=== PATIENT | female | born 1945 | race Caucasian/White ===

== ENCOUNTER 2017-04-20 10:09 | Inpatient (IN) | payer MEDICARE ==
--- NOTE | ~2017-04-20 | OP ---
Record Of Operation [facility] [address] [place]. [address] NAME: SERA HUTCHINS : 45 STATUS : ADM IN PAT#: [id number] AGE: 71 ADM/REG DATE : 04/21/17 MR#: [id number] REPORT SERV DATE: 04/22/17 DICTATED BY: LON SALINAS DATE: 04/22/17 REPORT STATUS : Draft TRANSCRIBED BY: MODL DATE: 04/22/17 DATE OF PROCEDURE: 04/22/2017 PREOPERATIVE DIAGNOSIS: Right trimalleolar ankle fracture. POSTOPERATIVE DIAGNOSIS: Right trimalleolar ankle fracture. PROCEDURE: Open reduction and internal fixation, right trimalleolar ankle fracture. ANESTHESIA: General. COMPLICATIONS: None. INDICATION FOR OPERATION: Sera Hutchins is a pleasant 71-year-old female who suffered the above-mentioned injury. Risks and benefits of surgical intervention were discussed at length with her and the patient. All of her questions were answered. She wished to proceed. DESCRIPTION OF PROCEDURE: Sera was brought back to operating room, where general anesthesia was initiated. Right lower extremity was prepped and draped in the usual sterile fashion. Esmarch exsanguination was utilized, well-padded thigh tourniquet was inflated. A longitudinal incision was made over the lateral aspect of the distal fibula and blunt dissection was used to protect local neurovascular structures. Limited subperiosteal dissection was used to expose the fracture. This was a comminuted fracture with a long oblique piece complicated by two posterior butterfly fragments. Distal traction was applied and anatomic reduction of the fracture was obtained with the use of fracture reduction clamps. We then used an Arthrex 10-hole one-third tubular plate. A combination of locking and nonlocking screws were used to secure the plate to the bone. Next, I approached the medial malleolus. An incision was made. Blunt dissection was used to protect local neurovascular structures. Limited subperiosteal dissection was used to expose the fracture. Two Arthrex 4.0 mm cannulated screws were placed across the fracture. Each screw secured the distal fragment to the more proximal tibial shaft. At this time, a FluoroScan imaging was obtained. AP mortise and lateral views of the ankle were performed. Imaging showed acceptable position of the fractures as well as the hardware. The posterior malleolar piece was relatively small and in acceptable position and fixation was not indicated. Images were printed and saved. Copious irrigation was repeated. Deep tissue was closed over the hardware with interrupted 2-0 Vicryl suture. Subcutaneous tissues and skin were closed in typical fashion. Bulky sterile dressings were applied and a well-padded posterior splint was placed. The patient did well throughout the case. She awoke in the operating room and was transferred to the recovery room in satisfactory condition. MMB/MODL Record Of Operation [address] [address] NAME: SERA HUTCHINS : 45 STATUS : ADM IN PAT#: [id number] AGE: 71 ADM/REG DATE : 04/21/17 MR#: [id number] REPORT SERV DATE: 04/22/17 DICTATED BY: LON SALINAS DATE: 04/22/17 REPORT STATUS : Draft TRANSCRIBED BY: BLUE DATE: 04/22/17 Lon Salinas MD / [id number] CC: David Ortez M.D.
--- NOTE | ~2017-04-20 | CN ---
Consultation Report [facility] [address] [place]. [address] NAME: SERA HUTCHINS : 45 STATUS : ADM IN [facility]#: [id number] AGE: 71 ADM/REG DATE : 04/21/17 MR#: [id number] REPORT SERV DATE: 04/22/17 DICTATED BY: LON SALINAS DATE: 04/21/17 REPORT STATUS : Draft TRANSCRIBED BY: MODL DATE: 04/21/17 ORTHOPEDIC FOOT AND ANKLE CONSULTATION DATE OF CONSULTATION: 04/21/2017 REASON FOR CONSULTATION: Right bimalleolar ankle fracture. HISTORY OF PRESENT ILLNESS: Sera Hutchins is a pleasant 71-year-old female, who was seen at the bedside with her . Her is her main caregiver and they admit to an increasing right ankle pain. Unfortunately, they are not exactly sure at which point the ankle was actually broken. She had a number of falls off from standing height over the past few weeks. Three days ago, she did have a fall on the right side which may have been the precipitating event. This was a very low energy type of fall where she essentially "sat down on" her right foot. Since that time, she has had difficulty walking due to right ankle pain. She denies associated injuries to include head injury or loss of consciousness. She denies injury to the bilateral upper extremities or left lower extremity. PAST MEDICAL HISTORY: Significant for multiple sclerosis for 30 years, it has been progressive with significant decline in her functional status over the past. History of seizure disorder. History of glaucoma and osteoarthritis. SURGICAL HISTORY: Significant for appendectomy in 2012. ALLERGIES: NO KNOWN DRUG ALLERGIES. SOCIAL HISTORY: The patient received a high level of care from her family. She is . She is disabled. She lives in [place], [place]. Her baseline is that she ambulates with a walker with assistance from her family. She denies tobacco use. She has never smoked. She denies alcohol use as well as no illicit or recreational drug use. FAMILY HISTORY: Significant for peripheral vascular disease in her father. Mother had a brain aneurysm at age 82. No other significant family history. MEDICATIONS: At home include Alphagan eyedrops, timolol eye drops, vitamin D3, Keppra, multivitamins, Ruby-[place] Plus Cold and Cough p.r.n. over the counter. REVIEW OF SYSTEMS: She was in her usual state of health at the time of the evaluation. She denies fevers, chills, nausea, vomiting, abdominal pain, shortness of breath, or chest pain. PHYSICAL EXAMINATION: GENERAL: Reveals that her temperature is 98.2, pulse is 86, respiratory rate 22. She is 92% on room air. Her BMI is 29.4. GENERAL: She is alert and oriented x3. Consultation Report [address] [place]. [address] NAME: SERA HUTCHINS : 45 STATUS : ADM IN PAT#: [id number] AGE: 71 ADM/REG DATE : 04/21/17 MR#: [id number] REPORT SERV DATE: 04/22/17 DICTATED BY: LON SALINAS DATE: 04/21/17 REPORT STATUS : Draft TRANSCRIBED BY: BLUE DATE: 04/21/17 HEENT: Head is atraumatic. Eyes, pupils are equal to light and reactive. EXTREMITIES: No tenderness with gentle range of motion of her cervical spine. No tenderness with gentle range of motion of her bilateral upper extremities. Lower extremities, no tenderness to gentle range of motion of her left hip, knee, or ankle. There is no evidence of traumatic skin lesions. On the right lower extremity, no evidence of tenderness with gentle range of motion of her right hip and right knee. The right ankle shows evidence of diffuse edema. There is mild ecchymosis on the medial and lateral aspects. She is exquisitely tender to palpation over the medial and lateral malleoli. No evidence of midfoot or forefoot trauma. No open skin lesions. X-RAYS: Three views of the right ankle reveal a right bimalleolar ankle fracture. The medial malleolus is minimally displaced and the lateral malleolus is moderately displaced. There is some disuse osteopenia present. IMPRESSION: 1. Right bimalleolar ankle fracture. 2. Multiple sclerosis. PLAN: Lengthy discussion with the patient and her regarding her diagnosis and treatment options. Due to the displacement of this ankle fracture and potential for further displacement, I recommended open reduction and internal fixation. All of their questions were answered, and we will proceed with surgical stabilization of this ankle fracture during her hospitalization. I spoke with Dr. Ortez on the phone who agreed with our plan. We will proceed with ORIF tomorrow (04/22/2017). She will be n.p.kenton hanks. Please feel free to call me on my cell phone at with additional questions or concerns. 55 minutes was spent on this consultation including review of the medical records, x-ray review, development of a treatment plan, as well as [id number] time with the patient and her . RANJIT/BLUE Lon Salinas MD / [id number] CC: David Ortez M.D.
--- NOTE | ~2017-04-20 | HP ---
History And Physical [facility] [id number] [place]. [address] NAME: JOSE MORA : 45 STATUS : ADM Caro PAT#: [id number] AGE: 71 ADM/REG DATE : 04/20/17 MR#: [id number] REPORT SERV DATE: 04/20/17 DICTATED BY: EFREN PACHECO DATE: 04/20/17 REPORT STATUS : Draft TRANSCRIBED BY: MODL DATE: 04/20/17 DATE OF ADMISSION: 04/20/2017 CHIEF COMPLAINT: Right lower extremity pain, inability to walk. HISTORY OF PRESENT ILLNESS: Obtained from the patient and the patient's present at bedside, who is the main caregiver, and the emergency room documents. Also, prior medical records available to us were thoroughly reviewed. According to the information available, the patient is a pleasant, 71-year-old white woman, mainly with a history of multiple sclerosis/mass progressive for over 30 years in the almost total care of her at home. At baseline, the patient is able to get up with significant assistance, pivot around, and used a walker to get some steps and preserved some mobility and ability to get to the doctor's visit. Apparently three days ago, the patient had a fall on the right side, which was actually very low type of fall. The patient almost slid and had since pain in the right hip, right lower back, and unable to walk since yesterday. The patient's family reports increased myalgias, arthralgias, and lower back pain. No dysuria or urinary symptoms. No fever or chills. No cough. No increased abdominal pain or nausea or vomiting, diarrhea, change in bowel movement, habits or change in p.o. intake. No recent change in her medications. The patient apparently has been seen by her neurologist, Dr. Taylor, for a regular scheduled visit just about a month ago in 03/2017. In the emergency room, the patient was investigated with x-rays as well as CT scan of the abdomen and pelvis, though they were mostly unrevealing with also laboratory data showing dehydration and acute kidney injury compared with laboratory testing from about a month ago. Furthermore physical examination by the Hospitalist Service called to evaluate and admit the patient revealed a possible right ankle/right calf cellulitis with increasing swelling and tenderness as well as significant swelling compared with the left lower extremity is concerning for possible DVT. Note that further investigation is still pending at the moment of admission and dictation of this H and P. PAST MEDICAL HISTORY: Significant for multiple sclerosis apparently for 30 years progressive with significant decline in her functional status over the last year. The patient in almost total care of her family at home, history of possible seizure disorder. The patient is taking Keppra for many years as well. History of glaucoma. History of osteoarthritis. PAST SURGICAL HISTORY: Significant for appendectomy in 2012 when patient was admitted here at [facility] with the sepsis secondary to the appendicitis process. ALLERGIES: NO KNOWN DRUG ALLERGIES. SOCIAL HISTORY: , disabled, lives in [place], [place]. The patient ambulates at baseline with a walker after she has been "setup" by her family. Denies tobacco abuse. Never smoked. Denies alcohol abuse. Denies illicit or recreational drug abuse. FAMILY HISTORY: Significant for peripheral vascular disease in her father. Her mother had a brain aneurysm diagnosed at age 82. There is no other significant family history. History And Physical [address] [address] NAME: JOSE MORA : 45 STATUS : ADM Caro PAT#: [id number] AGE: 71 ADM/REG DATE : 04/20/17 MR#: [id number] REPORT SERV DATE: 04/20/17 DICTATED BY: EFREN PACHECO DATE: 04/20/17 REPORT STATUS : Draft TRANSCRIBED BY: BLUE DATE: 04/20/17 MEDICATIONS: Medications at home according to the list provided, the patient is supposed to take Alphagan ophthalmic drops one drop both eyes b.i.d., timolol ophthalmic drops one drop both eyes every morning, vitamin D3 1000 units p.o. daily, Keppra 500 mg p.o. b.i.d., multiple vitamin and minerals over the counter 1000 p.o. daily, Ruby-[place] Plus cold and cough p.r.n. [id number]-[id number] two capsules b.i.d. REVIEW OF SYSTEMS: Per H and P, otherwise negative in all review of systems. Please note, the comprehensive review of system was obtained and pertinent positives are included in the H and P. PHYSICAL EXAMINATION: GENERAL: Pleasant, cooperative, obviously in mild distress when I examined and attempts were made regarding mobilization of the right lower extremity due to the pain. VITAL SIGNS: Upon arrival in the emergency room, blood pressure 102/57, pulse 75, respiratory rate 16, temperature 97.8, and oxygen saturation 94% in room air. HEENT: Bilateral cataracts. Extraocular movements intact. Throat, mild erythema. No exudate. No signs of tenderness. NECK: Supple. No JVD. No bruits. No thyromegaly. No lymph nodes. LUNGS: Bilateral air entry with few dry crackles at bases. No wheezing. Good airway movement. HEART: Positive S1, S2. Regular rate and rhythm. Positive soft mitral regurgitation murmur at the apex. No rub. No gallop. PMI not displaced by palpation. ABDOMEN: Positive bowel sounds. Soft, nontender. No guarding. No hepatosplenomegaly noted. Skin fold mild mucocutaneous candidiasis. EXTREMITIES: Decreased range of motion. No osteoarthritic changes. No clubbing. No cyanosis. Right calf was swollen, tender with increasing redness and increasing warmth, especially around the right ankle area, significantly different from the left lower extremity. Tenderness upon palpation of the distal thigh, but no significant tenderness around the right knee joint area. No synovitis noticed. Right hip with tenderness upon palpation of the thigh muscles with increased tenderness with range of motion and direct palpation (passively range of motion). Distal pulses +1 symmetric bilateral. NEUROLOGIC: Alert and oriented x3 at baseline. Significant with her well known multiple sclerosis status. No meningeal signs noticed. Pleasant, cooperative, appropriate mood and affect. Cranial nerves 2 through 12 grossly intact. BACK: Decreased range of motion. No focal localized tenderness. No CVA tenderness. SKIN: No bruises, no rashes, no lacerations (besides the above-mentioned changes at the right ankle/right calf area). SIGNIFICANT LABORATORY DATA: Chest x-ray (personal reading) showed no acute infiltrate. EKG (personal reading) shows normal sinus rhythm at 79 beats per minute. Occasional PVCs. No acute ST elevation. Urinalysis not available, not done. CT scan of the abdomen and pelvis shows no acute intraabdominal or intrapelvic pathology without contrast, chronic moderate L1 compression fracture, diverticulosis without diverticulitis. Hip and right femur x-rays with no signs of fractures or displacement, dislocations. Osteoarthritis of the knee. CK is 218, which is only slightly elevated. White cell count 10.8, hemoglobin 13.2, platelet count 219, INR 1.2. Sodium 135, potassium 4, chloride 106, bicarb 28, BUN 24, creatinine 1.48, glucose 97, calcium 9.1, magnesium 2.6, troponin I less than 0.02. History And Physical [address] [address] NAME: JOSE MORA : 45 STATUS : ADM Caro PAT#: [id number] AGE: 71 ADM/REG DATE : 04/20/17 MR#: [id number] REPORT SERV DATE: 04/20/17 DICTATED BY: EFREN PACHECO ION DATE: 04/20/17 REPORT STATUS : Draft TRANSCRIBED BY: MODL DATE: 04/20/17 ASSESSMENT AND PLAN AND PROBLEM LIST: The patient is a pleasant, 71-year-old white woman, admitted with inability to walk. Right lower extremity pain, possible secondary to the right calf cellulitis in addition to her baseline multiple sclerosis and muscle trauma. IMPRESSION: 1. Neurologic problem. a. Multiple sclerosis, longstanding. b. Seizure disorder, presently stable on medication. We are going to continue Keppra for now and monitor her neurologic checks. Notify or go to consult Dr. Taylor at the patient's family request the patient's presence in the hospital. 2. Right calf cellulitis, clinically significant. We are going to start IV antibiotic Ancef with rapid change to Duricef. Elevate right lower extremity. Check for possible deep venous thrombosis due to swelling and tenderness upon examination. 3. Musculoskeletal problem. a. Inability to walk and falls. b. Right hip and right leg pain intractable. We are going to provide adequate pain control and we are going to obtain physical therapy and OT evaluation, consider rehabilitation acute/subacute setting. 4. Acute kidney injury and mild dehydration. Provide adequate IV hydration. Monitor BUN and creatinine. Monitor urinary output. Check the PVR for possible retention. 5. Glaucoma by history. Continue ophthalmic drops. PROGNOSIS: Moderate for this admission. Discussed with the patient and the patient's family present at bedside. Questions answered in full. Please note, also the written H and P and written orders and instructions. Please note, the patient is a full code at this moment as discussed with the patient and family at bedside. RF/BLUE Efren Pacheco M.D. / [id number] CC: Magdy Agee M.D.
--- NOTE | ~2017-04-20 | DS ---
Discharge Summary [facility] [address] [place]. [address] NAME: JOSE MORA : 45 STATUS : DIS IN PAT#: [id number] AGE: 71 ADM/REG DATE : 04/21/17 MR#: [id number] REPORT SERV DATE: 04/24/17 DICTATED BY: GATITO HERNANDEZ DATE: 04/24/17 REPORT STATUS : Draft TRANSCRIBED BY: MODL DATE: 04/24/17 ADMISSION DATE: 04/21/2017 DISCHARGE DATE: 04/24/2017 REASON FOR ADMISSION: This is a 71-year-old female who had come in with a chief complaint of right lower extremity pain and inability to walk. She was admitted with presumed right lower extremity cellulitis. DISCHARGE DIAGNOSES: 1. Right ankle fracture, no cellulitis, status post open reduction and internal fixation repair. 2. History of multiple sclerosis. 3. Status post acute kidney injury. 4. Possible seizure disorder, on Keppra. HOSPITAL COURSE: Right ankle fracture. It was discovered after admission that the patient had an injury to the right ankle, unclear how long ago and what exactly happened. However, x-rays of the right ankle showed a fracture of the distal fibula, possible nondisplaced fracture of the medial malleolus. Ortho would be consulted. Dr. José Barnett would see the patient and felt that her right bimalleolar ankle fracture needed open reduction and internal fixation and would perform that surgery on 04/22/2017. The patient tolerated the procedure well. She was seen by Physical therapy who would recommend inpatient rehab and the patient was arranged for rehab at [facility]. The patient did have acute kidney injury on admission. Her creatinine was 1.48, she trended down to 1.05 with IV fluids. DISCHARGE CONDITION: Stable. DISCHARGE MEDICATIONS: 1. Keppra 500 mg p.o. b.i.d. 2. Alphagan ophthalmic drops. 3. Timolol ophthalmic drops. 4. Ruby-[place] p.r.n. 5. Multivitamin tablet daily. 6. Vitamin D3 daily. 7. Percocet 5/325 one tab q.6 hours p.r.n. pain. DISCHARGE PLAN: The patient is discharged to [facility] for rehab and then follow up with her primary care physician, Dr. Milagro Taylor after rehab. DICTATED BY: Gatito Hernandez APN TDR/MODL Discharge Summary [facility] [address] [address] NAME: JOSE MORA : 45 STATUS : DIS IN PAT#: [id number] AGE: 71 ADM/REG DATE : 04/21/17 MR#: [id number] REPORT SERV DATE: 04/24/17 DICTATED BY: GATITO HERNANDEZ DATE: 04/24/17 REPORT STATUS : Draft TRANSCRIBED BY: MODL DATE: 04/24/17 Gatito Hernandez APN / [id number] CC: Magdy Agee MD Sharon Farber, M.D.
[~2017-04-20 10:09] MED LIST: ALPHAGAN P0.1 % OPH; AUGMEN400S PO; CENTRUM TAB1 TAB PO; CYANO1000T PO; V2 PO; VITAMIN D31000 UNIT PO; VITC500 PO
[2017-04-20 11:08] LABS: BASOPHILS 0.2 %; BASOPHILS ABSOLUTE 0.02 10/3/uL (0.0-0.16); EOSINOPHILS 0.4 %; EOSINOPHILS ABSOLUTE 0.04 10/3/uL (0.0-0.53); ER CBC TAT 0 Hrs 07 Mins; HEMATOCRIT 40.3 % (36.0-48.0); HEMOGLOBIN 13.2 g/dL (12.0-16.0); IMMATURE GRANULOCYTES 0.2 %; IMMATURE GRANULOCYTES ABSOLUTE 0.02 10/3/uL (0.0-0.11); LYMPHOCYTES ABSOLUTE 1.19 10/3/uL (0.67-4.30); MANUAL DIFF NO %; MEAN CORPUS HGB CONC 32.8 g/dL (32.0-36.0); MEAN CORPUSCULAR VOLUME 94.6 fL (80-100); MEAN PLATELET VOLUME 10.7 fL (9.2-13.0); MONOCYTES 9.2 %; MONOCYTES ABSOLUTE 0.99 10/3/uL (0.21-1.20); NEUTROPHILS ABSOLUTE 8.51 10/3/uL (2.02-8.40); PLATELET COUNT 219 10/3/uL (150-400); RBC DISTRIBUTION WIDTH 14.3 % (12.0-16.0); RED CELL COUNT 4.26 10/6/uL (4.0-5.6); WHITE BLOOD CELLS 10.8 10/3/uL (4.5-10.5)
[2017-04-20] MEDS ORDERED: KEPPRA500 PO (11:11)
[2017-04-20] MEDS ORDERED: ALPHAGAN OPH (11:11)
[2017-04-20] MEDS ORDERED: TIMOLOL MAL0.5 % OPH (11:12)
[2017-04-20] MEDS ORDERED: ALKA-SELTZER P1 EAC3 PO (11:13)
[2017-04-20 11:14] LABS: INTERNATIONAL NORMAL RATI 1.2 UNITS (-); PARTIAL THROMBO TIME 26.1 SEC (22.5-37.2); PROTIME (NOT ORD) 14.8 SEC (12.0-14.5)
[2017-04-20] MEDS ORDERED: MULTIVIT/MIN PO (11:14)
[2017-04-20] MEDS ORDERED: VITAMIN D3 PO (11:14)
[2017-04-20 11:23] LABS: BUN (BLOOD UREA NITROGEN) 24 MG/DL (6-23); CALCIUM, SERUM 9.1 MG/DL (8.5-10.4); CHEST PAIN PROFILE TAT 0 Hrs 22 Mins; CHLORIDE, SERUM 106 MMOL/L (96-112); CO2 (CARBON DIOXIDE) 28 MMOL/L (24-34); CREATININE 1.48 MG/DL (0.55-1.02); GFR AFRICAN AMERICAN 41 ML/MIN (>=60); GFR NON AFRICAN AMERICAN 35 ML/MIN (>=60); GLUCOSE, SERUM 97 MG/DL (60-99); SODIUM, SERUM 135 MMOL/L (135-148); TROPONIN I <0.02 NG/ML (<0.05)
[2017-04-20 15:05] LABS: ASCORBIC ACID (UR NOT ORDER) NEG (NEG); BILIRUBIN, URINE NEGATIVE (NEG); ER URINALYSIS TAT 0 Hrs 24 Mins; KETONE, URINE NEGATIVE (NEG); LEUKOCYTE ESTERASE(NOT OR NEG (NEG); NITRITE (URINE) NEG (NEG); WBC (NOT ORDERED) (RFLEX) 8 (0-5)
[2017-04-20 21:17] LABS: PHOSPHORUS, SERUM 3.5 MG/DL (2.5-4.5)
[2017-04-20 21:19] LABS: FOLATE 26.7 NG/ML (>5.2)
[2017-04-21 05:49] LABS: BASOPHILS 0.2 %; BASOPHILS ABSOLUTE 0.02 10/3/uL (0.0-0.16); EOSINOPHILS 0.7 %; EOSINOPHILS ABSOLUTE 0.07 10/3/uL (0.0-0.53); HEMATOCRIT 39.5 % (36.0-48.0); HEMOGLOBIN 12.7 g/dL (12.0-16.0); IMMATURE GRANULOCYTES 0.2 %; IMMATURE GRANULOCYTES ABSOLUTE 0.02 10/3/uL (0.0-0.11); LYMPHOCYTES ABSOLUTE 1.81 10/3/uL (0.67-4.30); MEAN CORPUS HGB CONC 32.2 g/dL (32.0-36.0); MEAN CORPUSCULAR HEMOGLOB 30.5 pg (26.0-34.0); MEAN PLATELET VOLUME 10.9 fL (9.2-13.0); MONOCYTES 8.7 %; MONOCYTES ABSOLUTE 0.83 10/3/uL (0.21-1.20); NEUTROPHILS 71.2 %; NEUTROPHILS ABSOLUTE 6.78 10/3/uL (2.02-8.40); PLATELET COUNT 223 10/3/uL (150-400); RED CELL COUNT 4.16 10/6/uL (4.0-5.6); WHITE BLOOD CELLS 9.5 10/3/uL (4.5-10.5)
[2017-04-21 05:54] LABS: MANUAL DIFF NO %
[2017-04-21 06:15] LABS: ALKALINE PHOSPHATASE 85 U/L (45-117); BUN (BLOOD UREA NITROGEN) 21 MG/DL (6-23); CALCIUM, SERUM 8.5 MG/DL (8.5-10.4); CHLORIDE, SERUM 110 MMOL/L (96-112); CK-MB 4.3 NG/ML; CO2 (CARBON DIOXIDE) 26 MMOL/L (24-34); CPK 376 U/L (0-200); CREATININE 1.05 MG/DL (0.55-1.02); DIRECT BILIRUBIN 0.1 MG/DL (0.0-0.4); GFR AFRICAN AMERICAN 62 ML/MIN (>=60); GFR NON AFRICAN AMERICAN 53 ML/MIN (>=60); GLUCOSE, SERUM 98 MG/DL (60-99); INDIRECT BILIRUBIN(NOT ORDER) 0.4 MG/DL (0.1-0.9); PHOSPHORUS, SERUM 2.9 MG/DL (2.5-4.5); POTASSIUM, SERUM 4.4 MMOL/L (3.5-5.3); SGOT(AST) 28 U/L (5-40); SGPT(ALT) 26 U/L (5-65); SODIUM, SERUM 138 MMOL/L (135-148); TOTAL BILIRUBIN 0.5 MG/DL (0-1.2); TOTAL PROTEIN 6.6 G/DL (6.0-8.5); TROPONIN I <0.02 NG/ML (<0.05)
== END 2017-04-24 17:27 | DRG 493 ==
LOC: ER 10:09 → CDU1 15:36 → SDC/OF 04-22 15:55 → 1SO 04-22 20:27
PROVIDERS: Emergency Medicine; Internal Medicine; Orthopaedic Surgery Foot and Ankle Surgery
PROC: 0QSJ04Z Reposition Right Fibula with Internal Fixation Device, Open Approach (ICD-10-PCS; 2017-04-22)
PROC: 0QSG04Z Reposition Right Tibia with Internal Fixation Device, Open Approach (ICD-10-PCS; principal; 2017-04-22 16:45)
DX: S82.851A Displaced trimalleolar fracture of right lower leg, initial encounter for closed fracture (principal); S32.019A Unspecified fracture of first lumbar vertebra, initial encounter for closed fracture; N17.9 Acute kidney failure, unspecified; G35 Multiple sclerosis; E86.0 Dehydration; H26.9 Unspecified cataract; I34.0 Nonrheumatic mitral (valve) insufficiency; K57.30 Diverticulosis of large intestine without perforation or abscess without bleeding; Z68.29 Body mass index [BMI] 29.0-29.9, adult; M17.11 Unilateral primary osteoarthritis, right knee; G40.909 Epilepsy, unspecified, not intractable, without status epilepticus; H40.9 Unspecified glaucoma; Z79.899 Other long term (current) drug therapy; W18.30XA Fall on same level, unspecified, initial encounter; R29.6 Repeated falls; Z91.81 History of falling
CPT/HCPCS: 71010; 73502-RT; 73552-RT; 73610-RT; 74176; 76000; 80048; 80069; 80076; 81001; 82550; 82553; 82607; 82746; 83735; 84100; 84443; 84484; 85025; 85610; 85730; 86140; 93005; 93971; 96374; 97110-GO; 97110-GP; 97163-GP; 97164-GP; 97166-GO; 97530-GP; 99285; A9270-GY; C1713; G8978-CL-GP; G8979-CK-GP; G8987-CL-GO; G8988-CL-GO; G8989-CL-GO; J0360; J0690; J1170; J2370; J2405; J3010